=== PATIENT | female | born 1955 | race African-American/Black ===

== ENCOUNTER 2019-03-26 13:33 | Emergency (ER) | payer MEDICARE, OTHER ==
[2019-03-26 14:13] LABS: ALT (SGPT) Less than 7 U/L (8-55); AST (SGOT) 12 U/L (5-34); Albumin 3.4 g/dL (3.4-4.8); Alkaline Phosphatase 107 U/L (40-110); Anion Gap 13 mmol/L (10-20); BUN (Urea Nitrogen) 26 mg/dL (9.8-20.1); Bilirubin, Total 0.4 mg/dL (0.2-1.2); Calc. Creatinine Clearance 0 mL/min (70-130); Calcium 8.3 mg/dL (7.8-10.44); Carbon Dioxide 25 mmol/L (23-31); Chloride 111 mmol/L (98-107); Estimated GFR-MDRD 28; Globulin 3.4 g/dL (2.4-3.5); Glucose 102 mg/dL (80-115); Potassium 5.2 mmol/L (3.5-5.1); Protein, Total 6.8 g/dL (6.0-8.3); Sodium 144 mmol/L (136-145)
[2019-03-26 14:14] LABS: #Basophils 0.1 thou/uL (0.0-0.2); #Eosinphils 0.4 thou/uL (0.0-0.7); #Monocytes 0.4 thou/uL (0.11-0.59); #Neutrophils 4.8 thou/uL (1.40-6.50); %Basophils 1.1 % (0.0-1.0); %Eosinophils 5.4 % (0.0-10.0); %Lymphocytes 25.3 % (21.0-51.0); %Monocytes 5.7 % (0.0-10.0); %Neutrophils 62.5 % (42.0-75.0); Hemoglobin 9.3 g/dL (12.0-16.0); Hypochromia SLIGHT = 6-15 cells (100X) (0-5/hpf); MDiff Complete? YES; Mean Corpuscular HGB CONC 28.7 g/dL (32.0-36.0); Mean Corpuscular Hemoglobin 26.5 pg (27.0-31.0); Mean Corpuscular Volume 92.5 fL (78.0-98.0); Platelet Count 170 thou/uL (130-400); Platelet Morphology Comment Appears Adequate; RBC Distribution Width 15.1 % (11.5-14.5); Red Blood Cell (RBC) Count 3.52 mill/uL (4.20-5.40); White Blood Cell (WBC) Count 7.7 thou/uL (4.8-10.8)
--- NOTE | 2019-03-26 14:30 | RAD ---
RADIOGRAPH CHEST 1 VIEW: Date: 03/26/19 Time: 1412 hours HISTORY: 63-year-old female with dyspnea. COMPARISON: 02/02/19. FINDINGS: New finding of diffuse bilateral mixed interstitial and alveolar infiltrates which may represent pulm onary edema. Cardiomegaly. Left subclavian dual lead pacemaker. No pneumothorax. IMPRESSION: Evidence for congestive heart failure, including pulmonary alveolar edema. CLARK [] POS: DENNIS
[2019-03-26] MEDS ORDERED: Aspirin Chewable 81 MG TAB ONE (15:00)
[2019-03-26] MEDS ORDERED: Furosemide 20 MG/2 ML VIAL ONE (15:37)
[2019-03-26] MEDS ORDERED: Nitroglycerin 0.4 MG TAB 1 EACH ONE (15:37)
[2019-03-26] MEDS ORDERED: Furosemide 40 MG/4 ML VIAL ONE (15:38)
== END 2019-03-26 17:11 | disposition short-term general hospital (02) ==
LOC: MADERS 13:33
DX: I13.0 Hypertensive heart and chronic kidney disease with heart failure and stage 1 through stage 4 chronic kidney disease, or unspecified chronic kidney disease (principal); I50.9 Heart failure, unspecified; R79.89 Other specified abnormal findings of blood chemistry; I25.10 Atherosclerotic heart disease of native coronary artery without angina pectoris; I49.9 Cardiac arrhythmia, unspecified; I48.91 Unspecified atrial fibrillation; K21.9 Gastro-esophageal reflux disease without esophagitis; E78.5 Hyperlipidemia, unspecified; E78.00 Pure hypercholesterolemia, unspecified; G40.909 Epilepsy, unspecified, not intractable, without status epilepticus; E11.22 Type 2 diabetes mellitus with diabetic chronic kidney disease; F41.9 Anxiety disorder, unspecified; F32.9 Major depressive disorder, single episode, unspecified; Z79.82 Long term (current) use of aspirin; Z79.899 Other long term (current) drug therapy; Z86.73 Personal history of transient ischemic attack (TIA), and cerebral infarction without residual deficits; Z79.4 Long term (current) use of insulin
CPT/HCPCS: 71045; 80053; 82553; 83880; 84484; 85025; 87804; 93005; 96374; J1940; J7620